=== PATIENT | female | born 1960 | race Caucasian/White ===

== ENCOUNTER 2016-12-02 11:58 | Outpatient (CLI) | payer MEDICAID ==
--- NOTE | 2016-12-03 11:25 | XRAY Report ---
THREE VIEWS OF THE RIGHT HAND: 12/02/2016 CLINICAL HISTORY: Pain in the right hand. FINDINGS: Moderate degree of narrowing at the articulation between the base of the first metacarpal and trapezium with associated subchondral cyst formation noted along the subarticular surface of each side of this joint space. Mild narrowing of the first MP joint. Mild narrowing of the proximal and distal interphalangeal joints. Minimal narrowing of the fifth MP joint. Narrowing is noted between the navicular bone and trapezium of moderate degree. IMPRESSION: MILD OSTEOARTHRITIS OF THE RIGHT HAND. MOST PRONOUNCED OSTEOARTHRITIC CHANGE IS NOTED A T THE ARTICULATION BETWEEN THE BASE OF THE FIRST METACARPAL AND TRAPEZIUM. JOB #: [id number] EXT JOB #:[id number]
== END 2016-12-02 11:59 | disposition home or self-care (01) ==
LOC: DI.S 11:58
PROVIDERS: ATTEND Nurse Practitioner Family
DX: M19.041 Primary osteoarthritis, right hand (principal)

== ENCOUNTER 2016-12-08 08:25 | Outpatient (CLI) | payer MEDICAID ==
[2016-12-08 11:03] LABS: BASOPHILS # (AUTO) 0.1 10^3/uL (0.0-0.1); BASOPHILS % (AUTO) 0.8 %; EOSINOPHILS # (AUTO) 0.5 10^3/uL (0.0-0.7); EOSINOPHILS % (AUTO) 6.1 %; HCT - HEMATOCRIT 42.7 % (37.0-47.0); HGB - HEMOGLOBIN 14.4 g/dL (12.0-16.0); LYMPHOCYTES # (AUTO) 2.8 10^3/uL (1.5-3.5); LYMPHOCYTES % (AUTO) 34.2 %; MEAN CORPUSCULAR HEMOGLOBIN 29.8 pg (27.0-31.0); MEAN CORPUSCULAR HGB CONC 33.8 g/dL (32.0-36.0); MEAN CORPUSCULAR VOLUME 88.2 fL (81.0-99.0); MEAN PLATELET VOLUME 9.1 fL (7.9-10.8); MONOCYTES # (AUTO) 1.1 10^3/uL (0.0-1.0); MONOCYTES % (AUTO) 13.5 %; NEUTROPHILS # (AUTO) 3.7 10^3/uL (1.5-6.6); NEUTROPHILS % (AUTO) 45.4 %; RED BLOOD COUNT 4.84 10^6/uL (4.20-5.40); UNCORRECTED WHITE BLOOD COUNT 8.2 x10^3/uL; WHITE BLOOD COUNT 8.2 x10^3/uL (4.8-10.8)
[2016-12-08 11:26] LABS: ALBUMIN/GLOBULIN RATIO 1.3 (1.0-2.2); BILIRUBIN,TOTAL 0.6 mg/dL (0.2-1.0); BUN - BLOOD UREA NITROGEN 18 mg/dL (6-20); CALCIUM 9.1 mg/dL (8.5-10.3); CARBON DIOXIDE - CO2 26 mmol/L (21-32); CHLORIDE 106 mmol/L (101-111); CHOL/HDL RATIO 2.9 (<4.4); CHOLESTEROL 186 mg/dL; CREATININE 0.6 mg/dL (0.4-1.0); GFR - MDRD 103 (>89); GLUCOSE 101 mg/dL (70-100); HDL CHOLESTEROL 65 mg/dL; LDL/HDL RATIO 1.6 (<4.4); POTASSIUM 4.1 mmol/L (3.5-5.0); SODIUM 139 mmol/L (135-145); TOTAL PROTEIN 7.3 g/dL (6.7-8.2); TRIGLYCERIDES 93 mg/dL; URIC ACID 4.2 mg/dL (2.6-7.2); VLDL CHOLESTEROL 19 mg/dL
== END 2016-12-08 08:26 | disposition home or self-care (01) ==
LOC: LAB.F 08:25
PROVIDERS: ATTEND Nurse Practitioner Family
DX: M79.641 Pain in right hand (principal); R53.83 Other fatigue; Z13.220 Encounter for screening for lipoid disorders
CPT/HCPCS: 36415; 80053; 80061; 84443; 84550; 85025

== ENCOUNTER 2017-03-01 14:59 | Outpatient (CLI) | payer MEDICAID | END 2017-03-01 15:00 | disposition home or self-care (01) | LOC: RT.S 14:59 | PROVIDERS: ATTEND Nurse Practitioner Family | DX: R07.9 Chest pain, unspecified (principal) | CPT/HCPCS: 93005 ==

== ENCOUNTER 2017-03-16 08:22 | Day surgery (SDC) | payer MEDICAID ==
[~2017-03-16 08:22] MED LIST: ceFAZolin 2 GM/50 ML 2 GM/50 ML BAG IV ONE
[2017-03-16] MEDS ORDERED: LACTATED RINGERS 1,000 ML IV ONE (08:50)
[2017-03-16] MEDS ORDERED: BUPIVACAINE 0.25% PF 30 ML VIAL SUBQ ONE ×2 (11:43)
[2017-03-16] MEDS ORDERED: fentaNYL 100 MCG/2 ML VIAL IVP ONE (13:00)
[2017-03-16] MEDS ORDERED: ceFAZolin 2 GM/50 ML 2 GM/50 ML BAG IV ONE (13:00)
[2017-03-16] MEDS ORDERED: ONDANSETRON 4 MG/2 ML VIAL IVP ONE (13:00)
[2017-03-16] MEDS ORDERED: LIDOCAINE-MPF 2% 5 ML VIAL IM ONE (13:00)
[2017-03-16] MEDS ORDERED: KETOROLAC 30 MG/ML VIAL IVP ONE (13:00)
[2017-03-16] MEDS ORDERED: DEXAMETHASONE 4 MG/ML VIAL IVP ONE (13:00)
[2017-03-16] MEDS ORDERED: METOCLOPRAMIDE 10 MG/2 ML VIAL IVP ONE (13:00)
[2017-03-16] MEDS ORDERED: PROPOFOL 200 MG/20 ML VIAL IVP ONE (13:00)
[2017-03-16] MEDS ORDERED: HYDROcod/ACETAM 5/325 MG TABLET ONE (13:07)
[2017-03-16 13:11] VITALS: BP 104/60
--- NOTE | 2017-03-16 13:33 | OPERATIVE REPORT ---
DATE OF SURGERY: 03/16/2017 00:00:00 PREOPERATIVE DIAGNOSIS: Right thumb carpometacarpal joint arthritis. POSTOPERATIVE DIAGNOSIS: Right thumb carpometacarpal joint arthritis. NAME OF PROCEDURE: Right thumb carpometacarpal joint arthroplasty with trapezial excision and tendon reconstruction. SURGEON: Shante Miguel MD. ANESTHESIA: General. INDICATIONS FOR SURGERY: The patient is a 56-year-old female with progressive severe osteoarthritis o f her right thumb first carpometacarpal joint associated with joint space narrowing, enlargement, chr onic pain and diminished hogshead weigher. The patient has failed nonoperative management. She desires surgical i ntervention and thumb arthroplasty with trapezial excision is recommended. FINDINGS AT SURGERY: The patient had 2 small loose bodies in the area of the joint with zziw-on-poxv articulation of both the scaphotrapezial and trapezial first metacarpal joints. DESCRIPTION OF OPERATIVE PROCEDURE: The patient was taken to the operating room, given a general anes thetic. Tourniquet was placed on the upper arm. Forearm and hand were sterilely prepped and draped in the standard fashion. A surgical time-out was held, after which the limb was exsanguinated and the t ourniquet inflated to 250 mmHg. A curved incision was made around the base of thumb, exposing the fir st carpometacarpal joint and the trapezial lateral radial aspect. Appropriate dissection was then francisca en through the capsule into these joints and reflection of tissue performed to expose the entire radi al aspect of the trapezium. A saw was used to saw quadrant cuts into the trapezium, after which a car eful Marshall and rongeur was used to remove the fragments of bone. The flexor carpi radialis was use d as a tendon graft from its point of entry into the field where it was transected and the proximal s tump sewed to adjacent tissue. The distal one prepared by whipstitching to act as an anchoring graft to the first metacarpal base. A drill hole was made in the base for receiving this tendon. The thumb was positioned in abduction and a located position and pinned with a 0.062 K-wire, after which the te ndon, flexor carpi radialis was drawn into the first metacarpal base and sutured in place, which was very secure. The tourniquet was then deflated. There was minimal bleeding. The area was irrigated tho roughly. Closure was with interrupted Vicryl closing the capsule overlying the base of the first carp ometacarpal joint. Subsequent tissues were closed with interrupted Vicryl and Monocryl skin closure. The pin that had been placed was bent and left outside the skin with padding and dressings and the pa tient was fitted into a thumb spica cast and taken to the recovery room in stable condition. ESTIMATED BLOOD LOSS: Minimal. COMPLICATIONS: None. SPONGE AND NEEDLE COUNTS: Correct. JOB #: [id number] EXT JOB #:[id number]
== END 2017-03-16 08:23 | disposition home or self-care (01) ==
LOC: SDS 08:22
PROVIDERS: ATTEND Orthopaedic Surgery
PROC: 0RUS07Z Supplement Right Carpometacarpal Joint with Autologous Tissue Substitute, Open Approach (ICD-10-PCS; principal; 2017-03-16 09:30)
DX: M18.11 Unilateral primary osteoarthritis of first carpometacarpal joint, right hand (principal)
CPT/HCPCS: 25447; 26483; A9270; C1713; J0690; J7120

== ENCOUNTER 2017-04-10 11:49 | Emergency (ER) | payer MEDICAID ==
[2017-04-10 12:05] VITALS: BP 131/79
[2017-04-10] MEDS ORDERED: DEXAMETHASONE 10 MG/ML VIAL PO STA (14:05)
--- NOTE | 2017-04-10 14:07 | ED Physician Documentation ---
PD HPI URI - Stated complaint Stated Complaint: FEVER/BODY ACHE/CHEST PRESSURE - Chief complaint Chief Complaint: General - History obtained from History obtained from: Patient, Family - History of Present Illness Timing - onset: How many months ago (2) Timing duration: Months (2) Timing details: Gradual onset, Still present, Waxing and waning Associated symptoms: Fever, Nasal congestion, Rhinorrhea, Dry cough, Dyspnea Contributing factors: Sick contact (grandson with pneumonia) Improves by: Rest Worsened by: Activity Similar symptoms before: Has not had sx before Recently seen: Clinic, Surgery - Additional information Additional information: 56-year-old female has had a cough for the past 2 months. Symptoms have been waxing and waning over that time and now her symptoms are worse than usual. She has had a coughing paroxysm that is kept her awake at night she has some time getting a full deep breath occasionally and she has been into see her primary care doctor about this with diagnosis of allergies and she has a grandson who is been diagnosed with pneumonia. She is worried about infection. She also has had a recent surgery on her right thumb and she is healing well from this has no specific complaints of that with the exception that it makes life difficult to not be able to use right hand. Review of Systems Constitutional: denies: Fever Eyes: denies: Decreased vision Ears: denies: Ear pain Nose: reports: Rhinorrhea / runny nose, Congestion Throat: denies: Sore throat Cardiac: denies: Chest pain / pressure, Palpitations Respiratory: reports: Dyspnea, Cough GI: reports: Diarrhea. denies: Nausea, Vomiting : denies: Dysuria PD PAST MEDICAL HISTORY - Present Medications Home Medications: Ambulatory Orders Medication Instructions Recorded Confirmed Azithromycin [Zithromax] 250 mg PO DAILY #6 tablet 04/10/17 Benzonatate [Tessalon] 100 - 200 mg PO TID PRN #20 capsule 04/10/17 - Allergies Allergies/Adverse Reactions: Allergies Allergy/AdvReac Type Severity Reaction Status Date / Time No Known Drug Allergies Allergy Verified 04/10/17 12:05 PD ED PE NORMAL - Vitals Vital signs reviewed: Yes (hypertensive) - General General: No acute distress, Well developed/nourished - HEENT HEENT: Atraumatic, PERRL, EOMI, Other (both TM's are dull the left is erythematous and both are difficult to examine secondary to narrow curved canal. ) - Neck Neck: Supple, no meningeal sign, No bony TTP - Cardiac Cardiac: RRR, No murmur - Respiratory Respiratory: No respiratory distress, Clear bilaterally - Abdomen Abdomen: Soft, Non tender - Back Back: No CVA TTP, No spinal TTP - Derm Derm: Normal color, Warm and dry, No rash - Extremities Extremities: No deformity, No edema - Neuro Neuro: No motor deficit, No sensory deficit Eye Opening: Spontaneous Motor: Obeys Commands Verbal: Oriented GCS Score: 15 - Psych Psych: Normal mood, Normal affect Results - Vitals Vitals: Vital Signs - 24 hr 04/10/17 12:01 Temperature 36.8 C Heart Rate 62 Respiratory 18 Rate Blood Pressure 131/79 H O2 Saturation 99 Oxygen O2 Source Room air PD MEDICAL DECISION MAKING - ED course Complexity details: considered differential, d/w patient, d/w family ED course: 56-year-old female with a cough for several months with undulating symptoms appears to have otitis on exam today and she is treated here in the emergency department with dexamethasone 10 mg orally and we will put her on some azithromycin. Departure - Departure Disposition: Home, Self Care Clinical Impression: Otitis media Qualifiers: Otitis media type: suppurative Chronicity: acute Laterality: bilateral Recurrence: not specified as recurrent Spontaneous tympanic membrane rupture: without spontaneous rupture Qualified Code(s): H66.003 - Acute suppurative otitis media without spontaneous rupture of ear drum, bilateral Condition: Stable Instructions: ED Otitis Media Acute Adult Follow-Up: Asiya Acosta VERIFICATION CLERK [Primary Care Provider] - Prescriptions: Azithromycin [Zithromax] 250 mg PO DAILY #6 tablet Benzonatate [Tessalon] 100 - 200 mg PO TID PRN #20 capsule PRN Reason: Cough
[2017-04-10] MEDS ORDERED: DEXAMETHASONE 10 MG/ML VIAL ONE (14:18)
== END 2017-04-10 14:17 | disposition home or self-care (01) ==
LOC: ED 11:49
DX: H66.003 Acute suppurative otitis media without spontaneous rupture of ear drum, bilateral (principal)
CPT/HCPCS: 99283

== ENCOUNTER 2017-04-27 10:31 | Outpatient (CLI) | payer MEDICAID ==
[2017-04-27 18:26] LABS: BASOPHILS # (AUTO) 0.1 10^3/uL (0.0-0.1); BASOPHILS % (AUTO) 1.1 %; EOSINOPHILS # (AUTO) 0.2 10^3/uL (0.0-0.7); EOSINOPHILS % (AUTO) 2.4 %; HCT - HEMATOCRIT 44.6 % (37.0-47.0); HGB - HEMOGLOBIN 14.5 g/dL (12.0-16.0); LYMPHOCYTES # (AUTO) 2.5 10^3/uL (1.5-3.5); LYMPHOCYTES % (AUTO) 31.8 %; MEAN CORPUSCULAR HEMOGLOBIN 29.6 pg (27.0-31.0); MEAN CORPUSCULAR HGB CONC 32.6 g/dL (32.0-36.0); MEAN CORPUSCULAR VOLUME 90.8 fL (81.0-99.0); MEAN PLATELET VOLUME 9.6 fL (7.9-10.8); MONOCYTES # (AUTO) 0.8 10^3/uL (0.0-1.0); MONOCYTES % (AUTO) 10.2 %; NEUTROPHILS # (AUTO) 4.3 10^3/uL (1.5-6.6); NEUTROPHILS % (AUTO) 54.5 %; NUCLEATED RED BLOOD CELLS AUTO 0.1 /100WBC; RED BLOOD COUNT 4.92 10^6/uL (4.20-5.40); RED CELL DISTRIBUTION WIDTH 14.2 % (12.0-15.0); UNCORRECTED WHITE BLOOD COUNT 7.9 x10^3/uL; WHITE BLOOD COUNT 7.9 x10^3/uL (4.8-10.8)
== END 2017-04-27 10:32 | disposition home or self-care (01) ==
LOC: LAB.F 10:31
PROVIDERS: ATTEND Nurse Practitioner Family
DX: R53.83 Other fatigue (principal)
CPT/HCPCS: 36415; 85025

== ENCOUNTER 2017-05-03 09:12 | Outpatient (CLI) | payer MEDICAID ==
[2017-05-03] MEDS ORDERED: ALBUTEROL NEB 2.5 MG/3 ML INH ONE (10:00)
== END 2017-05-03 09:13 | disposition home or self-care (01) ==
LOC: RT 09:12
PROVIDERS: ATTEND Nurse Practitioner Family
DX: R05 Cough (principal)
CPT/HCPCS: 94060; J7613

== ENCOUNTER 2017-06-25 15:43 | Outpatient (CLI) | payer MEDICAID ==
--- NOTE | 2017-06-25 17:56 | XRAY Preliminary Report ---
Exam: XR CERVICAL SPINE COMPLETE IMPRESSION: 1. No acute bony abnormality. 2. Multilevel moderate degenerative changes. Suspect multilevel central and neural foraminal compromi se due to such. [facility] SITE ID: [id number]
--- NOTE | 2017-06-25 18:41 | XRAY Report ---
EXAM: CERVICAL SPINE RADIOGRAPHY EXAM DATE: 06/25/2017 04:00 PM. CLINICAL HISTORY: Pain in both shoulders, numbness/tingling. COMPARISONS: None. TECHNIQUE: 5 views. FINDINGS: Alignment: 3 mm degenerative retrolisthesis C3 on C4. 4 mm degenerative anterior subluxation C4 on C5. 3 mm degenerative retrolisthesis C5 on C6. Bones: The cervical vertebral bodies and posterior elements are well-visualized from the skull base t hrough C7-T1. No fractures or bone lesions. Disks: Moderate to marked narrowing C3-C4 with tiny osteophytes. Moderate to marked narrowing C5-C6 and C6-C7 with moderate caliber osteophytes and mild subcortical s clerosis. Facets: Moderate degenerative changes C3-C4, C4-C5, C5-C6, and C6-C7 facets. Neural Foramina: Bony neural foraminal compromise as follows: Mild right and moderate left C3-C4, moderate left C4-C5, moderate right and qxbzgbom-ds-wxkknp left C5-C6, qvlbgqcq-kk-pxcsqk bilaterally C6-C7. Soft Tissues: Normal. No prevertebral soft tissue swelling. The visualized lung apices are clear. IMPRESSION: 1. No acute bony abnormality. 2. Multilevel moderate degenerative changes. Suspect multilevel central and neural foraminal compromi se due to such. [facility] Referring Provider Line: [phone] SITE ID: [id number]
== END 2017-06-25 15:44 | disposition home or self-care (01) ==
LOC: DI.S 15:43
PROVIDERS: ATTEND Nurse Practitioner Family
DX: M47.892 Other spondylosis, cervical region (principal); M43.12 Spondylolisthesis, cervical region
CPT/HCPCS: 72050

== ENCOUNTER 2018-01-13 08:21 | Emergency (ER) | payer MEDICAID ==
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
[2018-01-13] MEDS ORDERED: ACETAMINOPHEN 1,000 MG/100 ML 100 ML IV STA (09:10)
[2018-01-13] MEDS ORDERED: IOPAMIDOL-300 100 ML VIAL ONE (09:29)
[2018-01-13 09:31] LABS: BASOPHILS # (AUTO) 0.1 10^3/uL (0.0-0.1); BASOPHILS % (AUTO) 0.7 %; EOSINOPHILS # (AUTO) 0.3 10^3/uL (0.0-0.7); EOSINOPHILS % (AUTO) 3.5 %; HGB - HEMOGLOBIN 13.8 g/dL (12.0-16.0); LYMPHOCYTES # (AUTO) 2.3 10^3/uL (1.5-3.5); LYMPHOCYTES % (AUTO) 30.2 %; MEAN CORPUSCULAR HEMOGLOBIN 30.6 pg (27.0-31.0); MEAN CORPUSCULAR HGB CONC 34.4 g/dL (32.0-36.0); MEAN CORPUSCULAR VOLUME 88.8 fL (81.0-99.0); MEAN PLATELET VOLUME 8.1 fL (7.9-10.8); MONOCYTES # (AUTO) 0.7 10^3/uL (0.0-1.0); MONOCYTES % (AUTO) 9.6 %; NEUTROPHILS # (AUTO) 4.2 10^3/uL (1.5-6.6); PLT - PLATELET COUNT 280 10^3/uL (130-450); RED BLOOD COUNT 4.52 10^6/uL (4.20-5.40); RED CELL DISTRIBUTION WIDTH 14.1 % (12.0-15.0); WHITE BLOOD COUNT 7.5 x10^3/uL (4.8-10.8)
[2018-01-13 09:50] LABS: ALBUMIN 4.2 g/dL (3.2-5.5); ALBUMIN/GLOBULIN RATIO 1.3 (1.0-2.2); BILIRUBIN,TOTAL 0.6 mg/dL (0.2-1.0); CALCIUM 9.1 mg/dL (8.5-10.3); CREATININE 0.5 mg/dL (0.4-1.0); TOTAL PROTEIN 7.5 g/dL (6.7-8.2)
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
[2018-01-13 12:47] VITALS: BP 147/81
[2018-01-13] MEDS ORDERED: IOPAMIDOL-300 100 ML VIAL IVP ONE (15:22)
== END 2018-01-13 12:51 | disposition home or self-care (01) ==
LOC: ED 08:21
DX: S20.212A Contusion of left front wall of thorax, initial encounter (principal); S13.9XXA Sprain of joints and ligaments of unspecified parts of neck, initial encounter; V50.9XXA Unspecified occupant of pick-up truck or van injured in collision with pedestrian or animal in traffic accident, initial encounter; Z87.891 Personal history of nicotine dependence
CPT/HCPCS: 36415; 70450; 71275; 72125; 73130; 73502; 80053; 83690; 84484; 85025; 93005; 96365; 96375; 99283; 99284; J0131; Q9967

== ENCOUNTER 2018-03-01 12:38 | Outpatient (CLI) | payer MEDICAID ==
--- NOTE | 2018-03-03 13:43 | MRI Report ---
Reason: SEQUELAE OF FRACTURE OF WRIST AND HAND,HAND JOINT Procedure Date: 03/01/2018 Accession Number: [id number] / [id number] Procedure: MRI - Wrist RT W/O CPT Code: FULL RESULT: EXAM: RIGHT WRIST MRI WITHOUT CONTRAST EXAM DATE: 03/01/2018 01:42 PM. CLINICAL HISTORY: Sequela of fracture of the wrist and hand. COMPARISON: Radiograph 01/13/2018. TECHNIQUE: Multiplanar, multisequence T1-weighted and fluid-sensitive sequences of the wrist without contrast. Other: None. FINDINGS: Bones: Edema in the ulnar side of the distal radius is likely a bony contusion. The patient has a small trabecular fracture of the proximal portion of the lunate (series 8, image 81). This is only 2.5 mm in length and is unlikely to have a cortical component. The patient has had a resection arthroplasty of the trapezium. Reactive periarticular marrow edema is seen in the distal portion of the trapezoid. There is also some reactive marrow edema in the proximal portion of the first metacarpal. Cartilage: Mild cartilage thinning is in the radiocarpal joint. The triangular fibrocartilage complex is unremarkable. Ligaments: The scapholunate and lunotriquetral ligaments are intact. The visualized other intrinsic, extrinsic and collateral ligaments are unremarkable. Tendons: The extensor compartment I through and flexor tendons are unremarkable. Musculature: No edema or fatty atrophy. Other: The contents of the carpal tunnel, including the median nerve, are unremarkable. Guyons canal is unremarkable. No ganglion cysts. A mild effusion is in the distal radioulnar joint. The subcutaneous tissues are unremarkable. IMPRESSION: 1. Prior surgery at the first carpometacarpal joint. 2. Bony contusion of the distal radius. 3. Small trabecular fracture of the lunate. [facility] MUSCULOSKELETAL RADIOLOGY SECTION
== END 2018-03-01 12:39 | disposition home or self-care (01) ==
LOC: DI 12:38
PROVIDERS: ATTEND Orthopaedic Surgery
DX: S62.121A Displaced fracture of lunate [semilunar], right wrist, initial encounter for closed fracture (principal); S50.11XA Contusion of right forearm, initial encounter

== ENCOUNTER 2018-03-14 07:13 | Day surgery (SDC) | payer MEDICAID ==
[2018-03-14] MEDS ORDERED: LACTATED RINGERS 1,000 ML IV ONE (07:28)
[2018-03-14] MEDS ORDERED: fentaNYL 250 MCG/5 ML VIAL IVP ONE (08:12)
[2018-03-14] MEDS ORDERED: MIDAZOLAM 2 MG/2 ML VIAL IVP ONE (08:12)
[2018-03-14 09:11] VITALS: BP 128/76
== END 2018-03-14 07:14 | disposition home or self-care (01) ==
LOC: SDS 07:13
PROVIDERS: ATTEND Surgery
PROC: 0DBH8ZZ Excision of Cecum, Via Natural or Artificial Opening Endoscopic (ICD-10-PCS; principal; 2018-03-14 08:15)
DX: Z12.11 Encounter for screening for malignant neoplasm of colon (principal); D12.0 Benign neoplasm of cecum; K57.30 Diverticulosis of large intestine without perforation or abscess without bleeding; K64.8 Other hemorrhoids; Z87.891 Personal history of nicotine dependence
CPT/HCPCS: 45385; J3010; J7120

== ENCOUNTER 2018-07-29 11:03 | Emergency (ER) | payer MEDICAID, OTHER ==
[2018-07-29 11:13] VITALS: BP 145/80
[2018-07-29 11:27] LABS: BILIRUBIN,URINE NEGATIVE (NEGATIVE); GLUCOSE, URINE (UA) NEGATIVE (NEGATIVE); KETONES,URINE (UA) NEGATIVE (NEGATIVE); LEUKOCYTE ESTERASE, URINE NEGATIVE (NEGATIVE); NITRITE,URINE NEGATIVE (NEGATIVE); OCCULT BLOOD,URINE NEGATIVE (NEGATIVE); PROTEIN,URINE NEGATIVE (NEGATIVE); UROBILINOGEN,URINE 0.2 (NORMAL) E.U./dL (NORMAL)
[2018-07-29 11:30] LABS: CLARITY,URINE CLEAR (CLEAR)
== END 2018-07-29 12:43 | disposition left against medical advice (07) ==
LOC: ED 11:03
DX: Z53.21 Procedure and treatment not carried out due to patient leaving prior to being seen by health care provider (principal)
CPT/HCPCS: 81001; 81003; 87086

== ENCOUNTER 2018-08-11 07:05 | Outpatient (CLI) | payer MEDICAID ==
--- NOTE | 2018-08-11 10:32 | XRAY Report ---
Reason: BACK PAIN,THORACIC REGION,RIGHT,BACK PAIN LUMBAR,P Procedure Date: 08/11/2018 Accession Number: [id number] / [id number] Procedure: XR - Thoracic Spine 2 View CPT Code: FULL RESULT: EXAM: THORACIC SPINE RADIOGRAPHY EXAM DATE: 08/11/2018 07:40 AM. CLINICAL HISTORY: Back pain; chronic thoracic region pain; lumbar pain. COMPARISON: CHEST ANGIO (AORTA) 01/13/2018 9:42 AM. TECHNIQUE: 2 views. FINDINGS: Alignment: There is a mild dextroconvex thoracic scoliosis centered about T7/T8. There is mild thoracic kyphosis with mild multilevel loss of vertebral body height in the lower thoracic spine, no dominant individual wedge compression fracture is seen. Bones: No fractures or bone lesions. Disks: Normal. Disk heights are maintained. Soft Tissues: Calcified suprahilar nodes are seen along the right mediastinal border. IMPRESSION: Thoracic scoliosis, mild. Degenerative changes as described. Calcified mediastinal lymph nodes. RADIA
--- NOTE | 2018-08-11 10:48 | XRAY Report ---
Reason: RIGHT HIP PAIN Procedure Date: 08/11/2018 Accession Number: [id number] / [id number] Procedure: XR - Hip w/Pelvis 2-3V RT CPT Code: FULL RESULT: EXAM: RIGHT HIP RADIOGRAPHY EXAM DATE: 08/11/2018 07:40 AM. CLINICAL HISTORY: RIGHT HIP PAIN. COMPARISON: HIP W/PELVIS 2-3V LT 01/13/2018 10:01 AM. TECHNIQUE: 2 views. FINDINGS: Bones: Posttraumatic changes are seen about the right pubic symphysis, unchanged compared to prior. No acute fracture is seen. Joints: No dislocation. The hip joint space is mildly narrowed symmetrically. Soft Tissues: Normal. No soft tissue swelling. IMPRESSION: Mild symmetric joint space narrowing. RADIA
--- NOTE | 2018-08-11 17:20 | XRAY Report ---
Reason: BACK PAIN,THORACIC REGION,RIGHT,BACK PAIN LUMBAR,P Procedure Date: 08/11/2018 Accession Number: [id number] / [id number] Procedure: XR - Lumbar Spine 2 View CPT Code: FULL RESULT: EXAM: LUMBOSACRAL SPINE RADIOGRAPHY. EXAM DATE: 08/11/2018 07:40 AM. CLINICAL HISTORY: Right-sided lumbar spine pain. COMPARISONS: None. TECHNIQUE: 3 views. FINDINGS: Alignment: 13 degrees levoscoliosis centered at L2. Bones: Sacralization of the L5 transverse processes, anatomic variant. Old mild wedging T12. Trabecular and cortical patterns otherwise unremarkable. Disks: Normal. Disk heights are maintained. Facets: Marked degenerative changes right L4-L5 facet. Sacroiliac Joints: Unremarkable. Soft Tissues: Normal. The visualized bowel gas pattern is normal. IMPRESSION: 1.No acute bony abnormality. 2. Marked degenerative changes right L4-L5 facet. 3. Mild scoliosis. RADIA
== END 2018-08-11 07:06 | disposition home or self-care (01) ==
LOC: DI 07:05
PROVIDERS: ATTEND Nurse Practitioner
DX: M47.816 Spondylosis without myelopathy or radiculopathy, lumbar region (principal); M41.86 Other forms of scoliosis, lumbar region; M41.84 Other forms of scoliosis, thoracic region; M25.551 Pain in right hip; M25.50 Pain in unspecified joint
CPT/HCPCS: 72070; 72100

== ENCOUNTER 2018-12-01 15:20 | Outpatient (CLI) | payer MEDICAID | END 2018-12-01 15:21 | disposition home or self-care (01) | LOC: DI 15:20 | PROVIDERS: ATTEND Internal Medicine | DX: Z12.31 Encounter for screening mammogram for malignant neoplasm of breast (principal) | CPT/HCPCS: 77063; 77067 ==

== ENCOUNTER 2019-08-04 16:33 | Outpatient (CLI) | payer MEDICAID | END 2019-08-04 16:34 | disposition home or self-care (01) | LOC: COV 16:33 | PROVIDERS: ATTEND Family Medicine | DX: R05 Cough (principal); R50.9 Fever, unspecified | CPT/HCPCS: 81599 ==

== ENCOUNTER 2019-08-15 13:14 | Outpatient (CLI) | payer MEDICAID ==
--- NOTE | 2019-08-16 01:21 | XRAY Report ---
Reason: COUGH Procedure Date: 08/15/2019 Accession Number: [id number] / [id number] Procedure: XR - Chest 2 View X-Ray CPT Code: 08797 Final Report FULL RESULT: EXAM: CHEST RADIOGRAPHY EXAM DATE: 08/15/2019 01:40 PM. CLINICAL HISTORY: COUGH. COMPARISON: THORACIC SPINE 2 VIEW 08/11/2018 7:13 AM CHEST 2 VIEW PA/LAT 04/27/2017 9:58 AM. TECHNIQUE: 2 views. FINDINGS: The mediastinal and cardiac silhouettes are normal. Biapical nodular pleural thickening is again seen with associated right upper lobe parenchymal scarring. Prominent interstitial lung markings are unchanged. There is no focal consolidation, pleural effusion, or pneumothorax. The lungs are hyperinflated. There is a thoracic dextroscoliosis with compensatory thoracolumbar levoscoliosis. IMPRESSION: No focal consolidation. RADIA
== END 2019-08-15 13:15 | disposition home or self-care (01) ==
LOC: DI 13:14
PROVIDERS: ATTEND Registered Nurse
DX: R05 Cough (principal)
CPT/HCPCS: 71046

== ENCOUNTER 2021-06-28 10:47 | Emergency (ER) | payer MEDICAID ==
--- NOTE | 2021-06-28 11:06 | ED Physician Documentation ---
PD HPI UPPER EXT INJURY - Stated complaint Stated Complaint: L HAND PAIN - Chief complaint Chief Complaint: Ext Problem - History obtained from History obtained from: Patient - History of Present Illness Location: Left, Wrist Type of injury: Fall (she did fall onto wrist a month ago, with worse pain. Had had wrist pain chronic prior to that and had Ortho at . She had elective surgery with removal of navicular/scaphoid 5 months ago and had ongoing pain following, which worsened a lot when fell a month ago. Seen by the Ortho last week.) Timing - onset: How many weeks ago (worsened pain for 3-4 weeks), How many months ago (had had wrist pain for years and worse for many months, less but still hurting after wrist surgery 5 months ago at .) Worsened by: Moving, Palpating Associated symptoms: Swelling (has had some swelling of middle fingers at times, with pain in volar wrist as well.). No: Weakness, Numbness Contributing factors: Prior ortho surgery (5 months ago) Recently seen: Clinic (seen by Ortho at this past week with direction to continue diclofenac and PT. Follow up in a month.) Review of Systems Constitutional: denies: Fever, Chills Nose: denies: Rhinorrhea / runny nose, Congestion Throat: denies: Sore throat Respiratory: denies: Cough Skin: denies: Rash, Lesions Neurologic: reports: Numbness (intermittently in index and middle fingers.). denies: Focal weakness PD PAST MEDICAL HISTORY - Past Medical History Cardiovascular: None Respiratory: Asthma Endocrine/Autoimmune: None GI: GERD : None HEENT: None Psych: None Musculoskeletal: Osteoarthritis Derm: None - Past Surgical History Past Surgical History: Yes Ortho: Other /[employer]: Hysterectomy - Present Medications Home Medications: Ambulatory Orders Medication Instructions Recorded Confirmed Acetaminophen [Acetaminophen Extra 500 mg PO QID PRN #50 tablet 06/28/21 Strength] Albuterol Sulfate [Proair Hfa 1 - 2 puffs INH Q4H PRN 06/28/21 06/28/21 Inhaler] Diclofenac Sodium Dr [Voltaren] 75 mg PO BIDWM 06/28/21 06/28/21 Famotidine [Pepcid] 20 mg PO DAILY PM 06/28/21 06/28/21 Fluticasone/Salmeterol [Advair 1 puffs IH BID 06/28/21 06/28/21 500-50 Diskus] Montelukast [Singulair] 10 mg PO QPM 06/28/21 06/28/21 Pantoprazole [Protonix] 40 mg PO DAILY 06/28/21 06/28/21 Tiotropium [place] [Spiriva] 1 puffs IH DAILY 06/28/21 06/28/21 Topiramate 50 mg PO BID 06/28/21 06/28/21 dexAMETHasone [Decadron] 4 mg PO DAILY 3 Days #3 tablet 06/28/21 oxyCODONE [Roxicodone] 5 mg PO Q6H PRN #15 tablet 06/28/21 - Allergies Allergies/Adverse Reactions: Allergies Allergy/AdvReac Type Severity Reaction Status Date / Time No Known Drug Allergies Allergy Verified 06/28/21 10:55 - Social History Does the pt smoke?: No Smoking Status: Former smoker Does the pt drink ETOH?: No Does the pt have substance abuse?: Yes - Immunizations Immunizations are current?: Yes - POLST Patient has POLST: No PD ED PE NORMAL - Vitals Vital signs reviewed: Yes - General General: Alert and oriented X 3, No acute distress, Well developed/nourished - Derm Derm: Normal color, Warm and dry, No rash - Extremities Extremities: Other (left wrist tender volar area, increased with palpation over mid wrist. No rash nor sores. Base of dorsal thumb tender and also tender proximal to over carpals area. No redness nor rash. Healed surgical scar. ) - Neuro Neuro: No motor deficit, No sensory deficit Results - Vitals Vitals: Vital Signs - 24 hr 06/28/21 06/28/21 10:50 12:40 Temperature 36.3 C L 36.6 C Heart Rate 65 62 Respiratory 18 18 Rate Blood Pressure 157/93 H 131/75 H O2 Saturation 100 100 Oxygen O2 Source Room air - Rads (name of study) wrist xray Radiology: Prelim report reviewed (osteopenia. No fractures. ), EMP read contemporaneously (scaphoid post surgical. arthritic changes. ), See rad report PD MEDICAL DECISION MAKING - ED course Complexity details: reviewed old records ([facility]U showed just couple of narcotic scripts in AugSept, which was the time she had wrist surgery. Not appearing to overuse nor drug seeking behavior, so I felt okay with short term pain med script. ), reviewed results (osteopenia without fracture. Some arthritic changes in area. ), considered differential (seems likely some extensor tendonitis, but also some scar tissue tenderness. No signs of infection. Pain with extension of thumb. ), d/w patient ED course: seems likely some thumb tendonitis extensor, and I did injection dorsal area over proximal first MC, aiming into tendon/sheath area. Tolerated well. Will give wrist thumb spica velcro splint to use. Departure - Departure Disposition: 01 Home, Self Care Clinical Impression: Thumb tendonitis Wrist pain Qualifiers: Laterality: left Qualified Code(s): M25.532 - Pain in left wrist Condition: Stable Follow-Up: Tejal Andrade ARNP [Primary Care Provider] - Prescriptions: Acetaminophen [Acetaminophen Extra Strength] 500 mg PO QID PRN #50 tablet PRN Reason: Pain dexAMETHasone [Decadron] 4 mg PO DAILY 3 Days #3 tablet oxyCODONE [Roxicodone] 5 mg PO Q6H PRN #15 tablet PRN Reason: Pain Comments: Splint when doing activities and during sleep to help reduce motion and irritation. Have it off at times so the there is some range of motion and loosening of the ligaments and tendons. Gentle range of motion with some of the exercises previously shown by physical therapy. Continue with usual medications. Decadron steroid daily for several days to help with inflammation in the area. Tylenol 4 times daily for the next several days to week for pain. To that add oxycodone if needed for worse pain. This would be intended short-term. Follow-up with your orthopedist. Call this coming week to see if they are able to have you follow-up sooner than your currently planned appointment. I transmitted your prescriptions to [facility] pharmacy in [place]. I am prescribing a short course of narcotic pain medication for you. These are potentially dangerous and addictive medications that should be used carefully. These medications may constipate you. Take an [id number] stool softener such as docusate twice daily with plenty of water while taking these medications. If you go 24 hours without a bowel movement, take [id number] MiraLAX, per package instructions. Do not drink or drive while taking these medications. If you received narcotic or sedating medications while in the emergency department do not drive for 24 hours. Store this medication in a safe, secure place and out of reach of children. It is a violation of federal law to give or sell this medication to another person or to use in a manner other than prescribed. The ED will not refill narcotic prescriptions, including prescriptions lost or stolen. You can dispose of unwanted medications at the [facility]'s office or at several pharmacies such as [facility]. Discharge Date/Time: 06/28/21 12:41
[2021-06-28] MEDS ORDERED: TRIAMCINOLONE 40 MG/ML VIAL IM STA (11:27)
[2021-06-28] MEDS ORDERED: ACETAMINOPHEN 325 MG TABLET PO STA (11:27)
--- NOTE | 2021-06-28 12:12 | XRAY Report ---
PROCEDURE: Wrist 4 View LT INDICATIONS: wrist pain, post op and also fell on it TECHNIQUE: 4 views of the wrist were acquired. COMPARISON: None FINDINGS: Bones: No fractures or dislocations. No suspicious bony lesions. Generalized decreased osseous min eralization present. Soft tissues: No suspicious soft tissue calcifications. IMPRESSION: Osteopenia without fracture or foreign body Reviewed by: Cory Valle MD on 06/28/2021 11:11 AM [place] Approved by: Cory Valle MD on 06/28/2021 11:11 AM [place] Station ID: [id number]
[2021-06-28 12:40] VITALS: BP 131/75
== END 2021-06-28 12:41 | disposition home or self-care (01) ==
LOC: ED 10:47
DX: M77.8 Other enthesopathies, not elsewhere classified (principal); M25.532 Pain in left wrist; Z87.891 Personal history of nicotine dependence
CPT/HCPCS: 73110; 96372; 99282; 99283; A9270